=== PATIENT | female | born 1970 | race Caucasian/White ===

== ENCOUNTER 2017-08-21 06:21 | Day surgery (SDC) | payer OTHER ==
[~2017-08-21] VITALS: Ht 167.6 cm; Wt 63.5 kg
[2017-08-21] MEDS ORDERED: ONDANSETRON 4 MG/2 ML VIAL IVP PRN ×2 (07:35→09:20)
[2017-08-21] MEDS ORDERED: ACETAMINOPHEN/CODEINE 300/30MG 1 TAB PO PRN (07:35)
[2017-08-21] MEDS ORDERED: MORPHINE SULFATE 4 MG/ML SYR IM/IVP PRN (07:35)
[2017-08-21] MEDS ORDERED: IBUPROFEN 800 MG TAB PO PRN (07:35)
[2017-08-21] MEDS ORDERED: METF500T2 PO (08:02)
[2017-08-21] MEDS ORDERED: HYDR200T5 PO (08:02)
[2017-08-21] MEDS ORDERED: CALC-577 PO (08:02)
[2017-08-21] MEDS ORDERED: fentaNYL 0.05 MG/ML VIAL ONE (08:40)
[2017-08-21] MEDS ORDERED: MIDAZOLAM 2 MG/2 ML VIAL ONE (08:40)
[2017-08-21] MEDS ORDERED: MEPERIDINE 50 MG/ML SYR ONE ×2 (08:41→08:55)
[2017-08-21] MEDS ORDERED: DEXAMETHASONE 10 MG/ML VIAL ONE (08:55)
[2017-08-21] MEDS ORDERED: SEVOFLURANE 250 ML BTL INH ONE (08:55)
[2017-08-21] MEDS ORDERED: PROPOFOL 200 MG/20 ML VIAL IV ONE (08:55)
[2017-08-21] MEDS ORDERED: SUCCINYLCHOLINE CHLORIDE 200 MG/10 ML VIAL IVP ONE (08:55)
[2017-08-21] MEDS ORDERED: BUPIVACAINE-MPF 0.25% 30 ML VIAL INJ ONE (09:15)
[2017-08-21] MEDS ORDERED: LACTATED RINGERS 1,000 ML IV SCH (09:18)
[2017-08-21] MEDS ORDERED: diphenhydrAMINE 50 MG/ML VIAL IVP PRN (09:20)
[2017-08-21] MEDS ORDERED: HYDROmorphone 1 MG/ML AMP IVP PRN (09:20)
[2017-08-21] MEDS ORDERED: MEPERIDINE 25 MG/ML SYR IVP PRN (09:20)
[2017-08-21] MEDS: HYDROmorphone PFS 2 MG/ML SYR ONE ×2 (10:07→10:17)
== END 2017-08-21 11:55 | disposition home or self-care (01) ==
LOC: MDS 06:21 → MMU 06:22 → MDS 11:55
PROVIDERS: ATTEND Obstetrics & Gynecology
DX: N83.202 Unspecified ovarian cyst, left side (principal); M19.90 Unspecified osteoarthritis, unspecified site
CPT/HCPCS: 36415; 58925; 71045; 86886; 86900; 86901; 88305; J0330; J0690; J1100; J1170; J2175; J2250; J2704; J3010; J3490; J7030; J7060; J7120; Q0092